=== PATIENT | female | born 1950 | race Caucasian/White ===

== ENCOUNTER 2024-03-24 09:05 | Inpatient (IN) | payer MEDICARE, MEDICAID ==
[2024-03-24] MEDS: Furosemide 40 MG/4 ML VIAL IVPUSH ONE (09:25)
[2024-03-24 09:45] LABS: BASOPHILS ABSOLUTE AUTO 0.02 10^3/uL (0.00-0.50); BASOPHILS PERCENT AUTO 0.2 % (0-1); HEMOGLOBIN 8.5 g/dL (12.0-16.0); IMMATURE GRAN ABSOLUTE AUTO 0.01 10^3/uL (0.00-0.49); IMMATURE GRAN PERCENT AUTO 0.1 % (0.0-4.9); LYMPHOCYTES ABSOLUTE AUTO 0.61 10^3/uL (0.60-5.00); LYMPHOCYTES PERCENT AUTO 4.9 % (24-44); MEAN CORPUSCULAR HEMOGLOBIN 28.9 pg (27.0-32.0); MEAN CORPUSCULAR HGB CONC 30.4 g/dL (32.0-36.0); MEAN CORPUSCULAR VOLUME 95.2 fL (83.0-97.0); MONOCYTES PERCENT AUTO 4.8 % (0-10); NEUTROPHILS ABSOLUTE AUTO 11.27 x10^3/uL (1.80-8.00); PLATELET COUNT,PLT 308 10^3/uL (150-400); RED BLOOD CELL COUNT 2.94 x10^6/uL (4.00-5.50); WHITE BLOOD CELL COUNT,WBC 12.5 10^3/uL (4.0-11.0)
[2024-03-24 10:05] LABS: ALBUMIN 3.3 g/dL (3.4-5.0); BILIRUBIN TOTAL 0.6 mg/dL (0.0-1.0); C-REACTIVE PROTEIN 1.98 mg/dL (<=0.50); CREATININE 1.6 mg/dL (0.6-1.0); EST CRCL DRUG DOSING (CG) 23.16 mL/min; MAGNESIUM 2.4 mg/dL (1.8-2.4); POTASSIUM,K 4.3 mEq/L (3.5-5.0); PROTEIN TOTAL,TP 7.6 g/dL (6.4-8.2)
[2024-03-24 11:09] LABS: APPEARANCE,URINE SLIGHTLY CLOUDY (CLEAR); BILIRUBIN,URINE NEGATIVE (NEGATIVE); COLOR,URINE YELLOW (YELLOW); GLUCOSE,URINE NEGATIVE (NEGATIVE); KETONES,URINE NEGATIVE (NEGATIVE); LEUKOCYTE ESTERASE,URINE SMALL (NEGATIVE); NITRITE,URINE POSITIVE (NEGATIVE); OCCULT BLOOD,URINE NEGATIVE (NEGATIVE); PH,URINE 5.5 (4.5-8.0); PROTEIN,URINE NEGATIVE (NEGATIVE); UROBILINOGEN,URINE 0.2 EU/dL (0.2-1.0)
[2024-03-24 11:20] LABS: RBC,URINE NOT SEEN /HPF (0-5)
[2024-03-24 11:21] LABS: BACTERIA,URINE MODERATE /HPF (NOT SEEN); SQUAMOUS EPITHELIAL CELLS,UR OCCASIONAL /HPF (NOT SEEN)
[2024-03-24] MEDS ORDERED: Ondansetron 4 MG/2 ML SDV IV PRN (12:26)
[2024-03-24] MEDS ORDERED: Acetaminophen 650 MG Supp RECTAL PRN (12:26)
[2024-03-24] MEDS ORDERED: Docusate Sodium 100 MG Cap PO PRN (12:26)
[2024-03-24] MEDS ORDERED: Ondansetron 4 MG Tab.DIS PO PRN (12:26)
[2024-03-24] MEDS ORDERED: Polyethylene Glycol 3350 Powder 17 GM Packet PO PRN (12:26)
[2024-03-24] MEDS ORDERED: Acetaminophen 325 MG Tab PO PRN (12:26)
[2024-03-24] MEDS: Piperacillin/Tazobactam 4.5 GM in Sodium Chloride 0.9% 100 ML IV ONE (12:29)
[2024-03-24] MEDS ORDERED: hydrALAZINE 25 MG Tab PO PRN (13:12)
[2024-03-24] MEDS ORDERED: Melatonin 3 MG Tab PO PRN (13:12)
[2024-03-24] MEDS ORDERED: traMADol 50 MG Tab PO PRN (13:12)
[2024-03-24] MEDS: Amoxicillin/Clavulanate K 500-125 MG Tab PO SCH (13:20)
[2024-03-24] MEDS: busPIRone 5 MG Tab PO SCH (14:05)
[2024-03-24] MEDS: Gabapentin 300 MG Cap PO SCH (14:05)
[2024-03-24] MEDS: Furosemide 40 MG/4 ML VIAL IVPUSH SCH (15:33)
[2024-03-24] MEDS: Albuterol/Ipratropium 3.0-0.5 MG/3 ML Neb Soln INH PRN (15:51)
[2024-03-24] MEDS: Nitroglycerin 2% Oint 1 GM UD Packet TOP ONE (18:10)
[2024-03-24 18:33] LABS: BASOPHILS ABSOLUTE AUTO 0.04 10^3/uL (0.00-0.50); BASOPHILS PERCENT AUTO 0.3 % (0-1); HEMATOCRIT 29.5 % (37.0-47.0); HEMOGLOBIN 8.9 g/dL (12.0-16.0); IMMATURE GRAN ABSOLUTE AUTO 0.03 10^3/uL (0.00-0.49); IMMATURE GRAN PERCENT AUTO 0.2 % (0.0-4.9); LYMPHOCYTES ABSOLUTE AUTO 0.77 10^3/uL (0.60-5.00); LYMPHOCYTES PERCENT AUTO 5.9 % (24-44); MEAN CORPUSCULAR HEMOGLOBIN 28.6 pg (27.0-32.0); MEAN CORPUSCULAR HGB CONC 30.2 g/dL (32.0-36.0); MEAN CORPUSCULAR VOLUME 94.9 fL (83.0-97.0); MONOCYTES ABSOLUTE AUTO 0.87 10^3/uL (0.00-1.50); MONOCYTES PERCENT AUTO 6.7 % (0-10); NEUTROPHILS ABSOLUTE AUTO 11.24 x10^3/uL (1.80-8.00); NEUTROPHILS PERCENT AUTO 86.9 % (41-71); PLATELET COUNT,PLT 317 10^3/uL (150-400); RED BLOOD CELL COUNT 3.11 x10^6/uL (4.00-5.50)
[2024-03-24 18:47] LABS: ALBUMIN 3.4 g/dL (3.4-5.0); BILIRUBIN TOTAL 0.5 mg/dL (0.0-1.0); CALCIUM 8.9 mg/dL (8.4-10.1); CREATININE 1.7 mg/dL (0.6-1.0); EST CRCL DRUG DOSING (CG) 21.8 mL/min; MAGNESIUM 2.5 mg/dL (1.8-2.4); POTASSIUM,K 4.3 mEq/L (3.5-5.0); PROTEIN TOTAL,TP 7.9 g/dL (6.4-8.2)
[2024-03-24 18:57] LABS: O2 DELIVERY DEVICE SIMPLE MASK; PCO2 ARTERIAL 50 mm/Hg0 (35-45)
[2024-03-24 18:58] LABS: BASE EXCESS ARTERIAL 5.9 (-2.0-3.0); BICARBONATE,ARTERIAL 30.7 mm/L (22.0-26.0); O2 SATURATION ARTERIAL 89 % (95-98); PO2 ARTERIAL 57 mm/Hg (80-100)
[2024-03-24] MEDS: Amitriptyline 25 MG Tab PO SCH (19:02)
[2024-03-24] MEDS: Apixaban 5 MG Tab PO SCH (19:03)
[2024-03-24] MEDS: atorvaSTATin 10 MG Tab PO SCH (19:03)
[2024-03-24] MEDS: Carvedilol 12.5 MG Tab PO SCH (19:03)
[2024-03-24] MEDS: Bumetanide 2.5 MG/10 ML MDV IVPUSH SCH (19:17)
[2024-03-24] MEDS: Insulin NPH/Insulin Regular,Human 70-30 100 Units/ML 10 ML Vial SUBCUT SCH (21:19)
[2024-03-25 07:22] LABS: BASOPHILS ABSOLUTE AUTO 0.04 10^3/uL (0.00-0.50); BASOPHILS PERCENT AUTO 0.6 % (0-1); HEMATOCRIT 25.7 % (37.0-47.0); HEMOGLOBIN 7.8 g/dL (12.0-16.0); IMMATURE GRAN ABSOLUTE AUTO 0.01 10^3/uL (0.00-0.49); IMMATURE GRAN PERCENT AUTO 0.1 % (0.0-4.9); LYMPHOCYTES ABSOLUTE AUTO 1.17 10^3/uL (0.60-5.00); LYMPHOCYTES PERCENT AUTO 16.9 % (24-44); MEAN CORPUSCULAR HEMOGLOBIN 28.8 pg (27.0-32.0); MEAN CORPUSCULAR HGB CONC 30.4 g/dL (32.0-36.0); MEAN CORPUSCULAR VOLUME 94.8 fL (83.0-97.0); MONOCYTES PERCENT AUTO 8.7 % (0-10); NEUTROPHILS ABSOLUTE AUTO 5.09 x10^3/uL (1.80-8.00); NEUTROPHILS PERCENT AUTO 73.7 % (41-71); PLATELET COUNT,PLT 273 10^3/uL (150-400); RED BLOOD CELL COUNT 2.71 x10^6/uL (4.00-5.50); WHITE BLOOD CELL COUNT,WBC 6.9 10^3/uL (4.0-11.0)
[2024-03-25 07:42] LABS: CALCIUM 8.7 mg/dL (8.4-10.1); CREATININE 1.7 mg/dL (0.6-1.0); EST CRCL DRUG DOSING (CG) 21.8 mL/min; MAGNESIUM 2.4 mg/dL (1.8-2.4); POTASSIUM,K 3.6 mEq/L (3.5-5.0)
[2024-03-25] MEDS: DULoxetine 30 MG Cap PO SCH (07:53)
[2024-03-25] MEDS: Aspirin 81 MG Tab.EC PO SCH (07:53)
[2024-03-25] MEDS: Metolazone 5 MG Tab PO SCH (07:53)
[2024-03-25] MEDS: amLODIPine 10 MG Tab PO SCH (07:54)
[2024-03-25] MEDS: Insulin NPH/Insulin Regular,Human 70-30 100 Units/ML 10 ML Vial SUBCUT SCH (10:20)
[2024-03-25] MEDS: Piperacillin/Tazobactam 4.5 GM in Sodium Chloride 0.9% 100 ML IV ONE (13:57)
[2024-03-25] MEDS: Albumin Human 25 GM in Premix Bag 1 BAG IV ONE (13:58)
[2024-03-25] MEDS: Piperacillin/Tazobactam 4.5 GM in Sodium Chloride 0.9% 100 ML IV SCH (18:26)
[2024-03-26 07:49] LABS: BASOPHILS ABSOLUTE AUTO 0.03 10^3/uL (0.00-0.50); BASOPHILS PERCENT AUTO 0.4 % (0-1); HEMATOCRIT 26.9 % (37.0-47.0); HEMOGLOBIN 8.3 g/dL (12.0-16.0); IMMATURE GRAN ABSOLUTE AUTO 0.01 10^3/uL (0.00-0.49); IMMATURE GRAN PERCENT AUTO 0.1 % (0.0-4.9); LYMPHOCYTES ABSOLUTE AUTO 1.06 10^3/uL (0.60-5.00); LYMPHOCYTES PERCENT AUTO 15.3 % (24-44); MEAN CORPUSCULAR HGB CONC 30.9 g/dL (32.0-36.0); MEAN CORPUSCULAR VOLUME 94.1 fL (83.0-97.0); MONOCYTES ABSOLUTE AUTO 0.65 10^3/uL (0.00-1.50); MONOCYTES PERCENT AUTO 9.4 % (0-10); NEUTROPHILS ABSOLUTE AUTO 5.18 x10^3/uL (1.80-8.00); NEUTROPHILS PERCENT AUTO 74.8 % (41-71); PLATELET COUNT,PLT 289 10^3/uL (150-400); RED BLOOD CELL COUNT 2.86 x10^6/uL (4.00-5.50); WHITE BLOOD CELL COUNT,WBC 6.9 10^3/uL (4.0-11.0)
[2024-03-26 07:54] LABS: CREATININE 1.5 mg/dL (0.6-1.0); EST CRCL DRUG DOSING (CG) 24.71 mL/min; MAGNESIUM 2.3 mg/dL (1.8-2.4); POTASSIUM,K 3.5 mEq/L (3.5-5.0)
[2024-03-26] MEDS: methylPREDNISolone Sodium Succinate 40 MG/1 ML SDV IVPUSH SCH (10:50)
[2024-03-26] MEDS: Albuterol/Ipratropium 3.0-0.5 MG/3 ML Neb Soln NEB SCH (12:39)
[2024-03-27 07:15] LABS: BASOPHILS ABSOLUTE AUTO 0.01 10^3/uL (0.00-0.50); BASOPHILS PERCENT AUTO 0.1 % (0-1); HEMATOCRIT 29.6 % (37.0-47.0); HEMOGLOBIN 9.2 g/dL (12.0-16.0); IMMATURE GRAN ABSOLUTE AUTO 0.01 10^3/uL (0.00-0.49); IMMATURE GRAN PERCENT AUTO 0.1 % (0.0-4.9); LYMPHOCYTES ABSOLUTE AUTO 0.36 10^3/uL (0.60-5.00); LYMPHOCYTES PERCENT AUTO 4.8 % (24-44); MEAN CORPUSCULAR HEMOGLOBIN 28.6 pg (27.0-32.0); MEAN CORPUSCULAR HGB CONC 31.1 g/dL (32.0-36.0); MEAN CORPUSCULAR VOLUME 91.9 fL (83.0-97.0); MONOCYTES ABSOLUTE AUTO 0.08 10^3/uL (0.00-1.50); MONOCYTES PERCENT AUTO 1.1 % (0-10); NEUTROPHILS ABSOLUTE AUTO 7.01 x10^3/uL (1.80-8.00); NEUTROPHILS PERCENT AUTO 93.9 % (41-71); PLATELET COUNT,PLT 298 10^3/uL (150-400); RED BLOOD CELL COUNT 3.22 x10^6/uL (4.00-5.50); WHITE BLOOD CELL COUNT,WBC 7.5 10^3/uL (4.0-11.0)
[2024-03-27 07:39] LABS: CALCIUM 9.2 mg/dL (8.4-10.1); CREATININE 1.5 mg/dL (0.6-1.0); EST CRCL DRUG DOSING (CG) 24.71 mL/min; MAGNESIUM 2.2 mg/dL (1.8-2.4); POTASSIUM,K 3.4 mEq/L (3.5-5.0)
[2024-03-27] MEDS: Bumetanide 1 MG Tab PO SCH (15:41)
[2024-03-27] MEDS ORDERED: Glucagon,Human Recombinant 1 MG Vial IM PRN (20:17)
[2024-03-27] MEDS ORDERED: 50% Dextrose in Water 50 ML Syringe IVPUSH PRN (20:17)
[2024-03-27] MEDS: Insulin Lispro 100 Units/ML 3 ML Vial SUBCUT ONE (20:27)
[2024-03-28 07:38] LABS: BASOPHILS ABSOLUTE AUTO 0.01 10^3/uL (0.00-0.50); BASOPHILS PERCENT AUTO 0.1 % (0-1); HEMATOCRIT 30.4 % (37.0-47.0); HEMOGLOBIN 9.5 g/dL (12.0-16.0); IMMATURE GRAN ABSOLUTE AUTO 0.01 10^3/uL (0.00-0.49); IMMATURE GRAN PERCENT AUTO 0.1 % (0.0-4.9); LYMPHOCYTES ABSOLUTE AUTO 0.38 10^3/uL (0.60-5.00); LYMPHOCYTES PERCENT AUTO 5.3 % (24-44); MEAN CORPUSCULAR HEMOGLOBIN 28.4 pg (27.0-32.0); MEAN CORPUSCULAR HGB CONC 31.3 g/dL (32.0-36.0); MONOCYTES ABSOLUTE AUTO 0.13 10^3/uL (0.00-1.50); MONOCYTES PERCENT AUTO 1.8 % (0-10); NEUTROPHILS ABSOLUTE AUTO 6.67 x10^3/uL (1.80-8.00); NEUTROPHILS PERCENT AUTO 92.7 % (41-71); PLATELET COUNT,PLT 345 10^3/uL (150-400); RED BLOOD CELL COUNT 3.34 x10^6/uL (4.00-5.50); WHITE BLOOD CELL COUNT,WBC 7.2 10^3/uL (4.0-11.0)
[2024-03-28 08:04] LABS: CALCIUM 9.4 mg/dL (8.4-10.1); CREATININE 1.5 mg/dL (0.6-1.0); EST CRCL DRUG DOSING (CG) 24.71 mL/min; MAGNESIUM 2.2 mg/dL (1.8-2.4); POTASSIUM,K 3.9 mEq/L (3.5-5.0)
== END 2024-03-28 12:50 | disposition home or self-care (01) | DRG 291 ==
LOC: CC.ED 09:05 → UNDOADMIN 11:23 → CC.MS 11:23
PROVIDERS: ADMIT Nurse Practitioner; ATTEND Nurse Practitioner
PROC: 4A033R1 Measurement of Arterial Saturation, Peripheral, Percutaneous Approach (ICD-10-PCS; principal; 2024-03-24)
PROC: 0T9B70Z Drainage of Bladder with Drainage Device, Via Natural or Artificial Opening (ICD-10-PCS; 2024-03-24)
DX: I13.0 Hypertensive heart and chronic kidney disease with heart failure and stage 1 through stage 4 chronic kidney disease, or unspecified chronic kidney disease (principal); J96.01 Acute respiratory failure with hypoxia; N39.0 Urinary tract infection, site not specified; Z68.42 Body mass index [BMI] 45.0-49.9, adult; I50.9 Heart failure, unspecified; E11.22 Type 2 diabetes mellitus with diabetic chronic kidney disease; E11.9 Type 2 diabetes mellitus without complications; E66.9 Obesity, unspecified; F32.A Depression, unspecified; N18.32 Chronic kidney disease, stage 3b; Z88.5 Allergy status to narcotic agent; Z79.84 Long term (current) use of oral hypoglycemic drugs; Z88.1 Allergy status to other antibiotic agents; Z88.2 Allergy status to sulfonamides; Z88.8 Allergy status to other drugs, medicaments and biological substances; Z79.4 Long term (current) use of insulin; Z79.899 Other long term (current) drug therapy; Z79.01 Long term (current) use of anticoagulants; Z79.82 Long term (current) use of aspirin; Z79.51 Long term (current) use of inhaled steroids; Z86.711 Personal history of pulmonary embolism; Z98.49 Cataract extraction status, unspecified eye; Z95.1 Presence of aortocoronary bypass graft; Z90.710 Acquired absence of both cervix and uterus
CPT/HCPCS: 36415; 71045; 80053; 81001; 83605; 83735; 83880; 84484; 85025; 86140; 87040 ×2; 87086; 87088; 87186; 93005; 96374; 99285; J1940; U0002; 36600; 51701; 71250; 80048; 82803; 82947; 93010; 94640; A9270-GY; J1815-GY; J2543; J2920; J3490; J7620-GY; P9047

== ENCOUNTER 2024-04-02 14:48 | Emergency (ER) | payer MEDICARE, MEDICAID ==
[2024-04-02 15:20] LABS: BASOPHILS ABSOLUTE AUTO 0.04 10^3/uL (0.00-0.50); BASOPHILS PERCENT AUTO 0.3 % (0-1); HEMATOCRIT 31.3 % (37.0-47.0); HEMOGLOBIN 9.9 g/dL (12.0-16.0); IMMATURE GRAN ABSOLUTE AUTO 0.03 10^3/uL (0.00-0.49); IMMATURE GRAN PERCENT AUTO 0.2 % (0.0-4.9); LYMPHOCYTES PERCENT AUTO 10.1 % (24-44); MEAN CORPUSCULAR HEMOGLOBIN 29.3 pg (27.0-32.0); MEAN CORPUSCULAR HGB CONC 31.6 g/dL (32.0-36.0); MEAN CORPUSCULAR VOLUME 92.6 fL (83.0-97.0); MONOCYTES ABSOLUTE AUTO 1.07 10^3/uL (0.00-1.50); MONOCYTES PERCENT AUTO 7.7 % (0-10); NEUTROPHILS ABSOLUTE AUTO 11.34 x10^3/uL (1.80-8.00); NEUTROPHILS PERCENT AUTO 81.7 % (41-71); PLATELET COUNT,PLT 282 10^3/uL (150-400); RED BLOOD CELL COUNT 3.38 x10^6/uL (4.00-5.50); WHITE BLOOD CELL COUNT,WBC 13.9 10^3/uL (4.0-11.0)
[2024-04-02 15:39] LABS: ALANINE AMINOTRANSFERASE,ALT 24 U/L (12-78); ALBUMIN 3.3 g/dL (3.4-5.0); ALKALINE PHOSPHATASE 120 U/L (46-116); ASPARTATE AMNIOTRANSFERASE,AST 16 U/L (15-37); BILIRUBIN TOTAL 0.6 mg/dL (0.0-1.0); BLOOD UREA NITROGEN,BUN 64 mg/dL (7-18); CALCIUM 9.4 mg/dL (8.4-10.1); CARBON DIOXIDE,CO2 39 mmol/L (21-32); CHLORIDE,CL 97 mEq/L (98-106); CREATININE 1.6 mg/dL (0.6-1.0); GLUCOSE RANDOM 157 mg/dL (75-99); POTASSIUM,K 3.9 mEq/L (3.5-5.0); PRO B-TYPE NATRIUR PEPT,BNPPRO 658 pg/mL (0-1000); PROTEIN TOTAL,TP 7.7 g/dL (6.4-8.2); SODIUM,NA 141 mEq/L (136-145)
[2024-04-02 15:40] LABS: ESTIMATED GFR 34 mL/min (>=60)
[2024-04-02] MEDS: Bumetanide 1 MG Tab PO ONE (16:00)
== END 2024-04-02 18:00 | disposition home or self-care (01) ==
LOC: CC.ED 14:48
DX: I13.0 Hypertensive heart and chronic kidney disease with heart failure and stage 1 through stage 4 chronic kidney disease, or unspecified chronic kidney disease (principal); I50.9 Heart failure, unspecified; N18.9 Chronic kidney disease, unspecified; E11.22 Type 2 diabetes mellitus with diabetic chronic kidney disease; E66.9 Obesity, unspecified; Z87.891 Personal history of nicotine dependence; Z95.1 Presence of aortocoronary bypass graft; Z79.899 Other long term (current) drug therapy; Z79.01 Long term (current) use of anticoagulants; Z79.4 Long term (current) use of insulin; Z88.2 Allergy status to sulfonamides; Z88.5 Allergy status to narcotic agent; Z88.1 Allergy status to other antibiotic agents
CPT/HCPCS: 36415; 71045; 80053; 83880; 85025; 99284; 99285; A9270; 71046

== ENCOUNTER 2024-05-01 15:43 | Emergency (ER) | payer MEDICARE ==
[2024-05-01 16:35] LABS: LACTIC ACID 1.3 mmol/L (0.4-2.0)
[2024-05-01 16:37] LABS: BASOPHILS ABSOLUTE AUTO 0.04 10^3/uL (0.00-0.50); BASOPHILS PERCENT AUTO 0.4 % (0-1); HEMATOCRIT 35.1 % (37.0-47.0); HEMOGLOBIN 10.8 g/dL (12.0-16.0); IMMATURE GRAN ABSOLUTE AUTO 0.02 10^3/uL (0.00-0.49); IMMATURE GRAN PERCENT AUTO 0.2 % (0.0-4.9); LYMPHOCYTES ABSOLUTE AUTO 1.95 10^3/uL (0.60-5.00); LYMPHOCYTES PERCENT AUTO 19.8 % (24-44); MEAN CORPUSCULAR HEMOGLOBIN 27.3 pg (27.0-32.0); MEAN CORPUSCULAR HGB CONC 30.8 g/dL (32.0-36.0); MEAN CORPUSCULAR VOLUME 88.6 fL (83.0-97.0); MONOCYTES ABSOLUTE AUTO 0.78 10^3/uL (0.00-1.50); MONOCYTES PERCENT AUTO 7.9 % (0-10); NEUTROPHILS ABSOLUTE AUTO 7.06 x10^3/uL (1.80-8.00); NEUTROPHILS PERCENT AUTO 71.7 % (41-71); PLATELET COUNT,PLT 340 10^3/uL (150-400); RED BLOOD CELL COUNT 3.96 x10^6/uL (4.00-5.50); WHITE BLOOD CELL COUNT,WBC 9.9 10^3/uL (4.0-11.0)
[2024-05-01 16:53] LABS: ALBUMIN 2.8 g/dL (3.4-5.0); BILIRUBIN TOTAL 0.4 mg/dL (0.0-1.0); C-REACTIVE PROTEIN 3.42 mg/dL (<=0.50); CALCIUM 9.7 mg/dL (8.4-10.1); EST CRCL DRUG DOSING (CG) 18.53 mL/min; MAGNESIUM 2.8 mg/dL (1.8-2.4); POTASSIUM,K 3.5 mEq/L (3.5-5.0); PROTEIN TOTAL,TP 7.9 g/dL (6.4-8.2)
[2024-05-01 17:00] LABS: INR 1.15 (0.92-1.18)
[2024-05-01] MEDS: Sodium Chloride 0.9% 1,000 ML IV ONE (17:07)
[2024-05-01] MEDS: VANCOmycin 1.75 GM/350 ML 1.75 GM in Premix Bag 1 BAG IV ONE (17:12)
[2024-05-01] MEDS: Morphine 2 MG/ML SYRINGE IVPUSH ONE (17:13)
== END 2024-05-01 19:25 ==
LOC: CC.ED 15:43
DX: E11.628 Type 2 diabetes mellitus with other skin complications (principal); L08.9 Local infection of the skin and subcutaneous tissue, unspecified; N17.9 Acute kidney failure, unspecified; E66.9 Obesity, unspecified; Z79.01 Long term (current) use of anticoagulants; Z79.899 Other long term (current) drug therapy; Z79.82 Long term (current) use of aspirin; Z79.4 Long term (current) use of insulin; Z88.5 Allergy status to narcotic agent; Z88.2 Allergy status to sulfonamides; Z88.1 Allergy status to other antibiotic agents; Z68.41 Body mass index [BMI] 40.0-44.9, adult
CPT/HCPCS: 36415; 73630; 80053; 83605; 83735; 85025; 85610; 86140; 87040; 96365; 96366; 96375; 99284; 99285; J2270; J3370; J7030

== ENCOUNTER 2024-05-19 12:51 | Inpatient (IN) | payer MEDICAID, MEDICARE ==
[2024-05-19] MEDS ORDERED: Sodium Chloride 0.9% 10 ML Syringe FLUSH PRN (13:40)
[2024-05-19 13:54] LABS: BASOPHILS ABSOLUTE AUTO 0.06 10^3/uL (0.00-0.50); BASOPHILS PERCENT AUTO 0.3 % (0-1); HEMATOCRIT 30.9 % (37.0-47.0); HEMOGLOBIN 9.6 g/dL (12.0-16.0); IMMATURE GRAN ABSOLUTE AUTO 0.06 10^3/uL (0.00-0.49); IMMATURE GRAN PERCENT AUTO 0.3 % (0.0-4.9); LYMPHOCYTES ABSOLUTE AUTO 0.82 10^3/uL (0.60-5.00); LYMPHOCYTES PERCENT AUTO 4.3 % (24-44); MEAN CORPUSCULAR HEMOGLOBIN 28.2 pg (27.0-32.0); MEAN CORPUSCULAR HGB CONC 31.1 g/dL (32.0-36.0); MEAN CORPUSCULAR VOLUME 90.6 fL (83.0-97.0); MONOCYTES ABSOLUTE AUTO 0.72 10^3/uL (0.00-1.50); MONOCYTES PERCENT AUTO 3.8 % (0-10); NEUTROPHILS ABSOLUTE AUTO 17.26 x10^3/uL (1.80-8.00); NEUTROPHILS PERCENT AUTO 91.3 % (41-71); PLATELET COUNT,PLT 409 10^3/uL (150-400); RED BLOOD CELL COUNT 3.41 x10^6/uL (4.00-5.50); WHITE BLOOD CELL COUNT,WBC 18.9 10^3/uL (4.0-11.0)
[2024-05-19 14:09] LABS: LACTIC ACID 1.6 mmol/L (0.4-2.0)
[2024-05-19 14:10] LABS: ALANINE AMINOTRANSFERASE,ALT 21 U/L (12-78); ALBUMIN 2.6 g/dL (3.4-5.0); ALKALINE PHOSPHATASE 94 U/L (46-116); ASPARTATE AMNIOTRANSFERASE,AST 21 U/L (15-37); BILIRUBIN TOTAL 0.8 mg/dL (0.0-1.0); BLOOD UREA NITROGEN,BUN 65 mg/dL (7-18); C-REACTIVE PROTEIN 3.93 mg/dL (<=0.50); CALCIUM 9.1 mg/dL (8.4-10.1); CARBON DIOXIDE,CO2 26 mmol/L (21-32); CHLORIDE,CL 104 mEq/L (98-106); CREATININE 1.9 mg/dL (0.6-1.0); GLUCOSE RANDOM 80 mg/dL (75-99); MAGNESIUM 1.1 mg/dL (1.8-2.4); PROTEIN TOTAL,TP 7.4 g/dL (6.4-8.2); SODIUM,NA 144 mEq/L (136-145)
[2024-05-19 14:17] LABS: ESTIMATED GFR 28 mL/min (>=60)
[2024-05-19 14:35] LABS: APPEARANCE,URINE SLIGHTLY CLOUDY (CLEAR); BILIRUBIN,URINE NEGATIVE (NEGATIVE); COLOR,URINE YELLOW (YELLOW); GLUCOSE,URINE NEGATIVE (NEGATIVE); KETONES,URINE NEGATIVE (NEGATIVE); LEUKOCYTE ESTERASE,URINE TRACE (NEGATIVE); NITRITE,URINE NEGATIVE (NEGATIVE); OCCULT BLOOD,URINE NEGATIVE (NEGATIVE); PH,URINE 5.5 (4.5-8.0); PROTEIN,URINE TRACE mg/dL (NEGATIVE); UROBILINOGEN,URINE 0.2 EU/dL (0.2-1.0)
[2024-05-19 14:40] LABS: BACTERIA,URINE RARE /HPF (NOT SEEN); EPITHELIAL CELLS,URINE NOT SEEN /HPF (NOT SEEN); MUCUS,URINE OCCASIONAL /HPF (NOT SEEN); RBC,URINE NOT SEEN /HPF (0-5); WBC,URINE 0-5 /HPF (0-5)
[2024-05-19] MEDS ORDERED: Polyethylene Glycol 3350 Powder 17 GM Packet PO PRN (18:24)
[2024-05-19] MEDS ORDERED: Acetaminophen 325 MG Tab PO PRN (18:28)
[2024-05-19] MEDS ORDERED: Ondansetron 4 MG Tab.DIS PO PRN (18:28)
[2024-05-19] MEDS ORDERED: Ondansetron 4 MG/2 ML SDV IV PRN (18:28)
[2024-05-19] MEDS: Piperacillin/Tazobactam 4.5 GM in Sodium Chloride 0.9% 100 ML IV ONE (19:30)
[2024-05-19] MEDS: Nystatin Crm 30 GM Tube TOP PRN (19:33)
[2024-05-19] MEDS: Amitriptyline 25 MG Tab PO SCH (19:34)
[2024-05-19] MEDS: Sertraline 25 MG Tab PO SCH (19:35)
[2024-05-19] MEDS: Apixaban 5 MG Tab PO SCH (19:35)
[2024-05-19] MEDS: atorvaSTATin 10 MG Tab PO SCH (19:36)
[2024-05-19] MEDS: busPIRone 5 MG Tab PO SCH (19:36)
[2024-05-19] MEDS: Acetaminophen 500 MG Tab PO SCH (19:37)
[2024-05-19] MEDS: Carvedilol 12.5 MG Tab PO SCH (19:39)
[2024-05-19] MEDS: Sodium Chloride 0.9% 1,000 ML IV SCH (22:26)
[2024-05-19] MEDS: Piperacillin/Tazobactam 4.5 GM in Sodium Chloride 0.9% 100 ML IV SCH (23:09)
[2024-05-19] MEDS: Insulin NPH/Insulin Regular,Human 70-30 100 Units/ML 10 ML Vial SUBCUT SCH (23:34)
[2024-05-20] MEDS: INSULN ASP SQ SCH (04:17)
[2024-05-20] MEDS: INSULIN ASPART PROT SQ SCH (04:17)
[2024-05-20 07:26] LABS: BASOPHILS ABSOLUTE AUTO 0.06 10^3/uL (0.00-0.50); BASOPHILS PERCENT AUTO 0.3 % (0-1); HEMOGLOBIN 9.3 g/dL (12.0-16.0); IMMATURE GRAN ABSOLUTE AUTO 0.09 10^3/uL (0.00-0.49); IMMATURE GRAN PERCENT AUTO 0.5 % (0.0-4.9); LYMPHOCYTES ABSOLUTE AUTO 0.99 10^3/uL (0.60-5.00); LYMPHOCYTES PERCENT AUTO 5.6 % (24-44); MEAN CORPUSCULAR HEMOGLOBIN 28.1 pg (27.0-32.0); MEAN CORPUSCULAR VOLUME 90.6 fL (83.0-97.0); MONOCYTES PERCENT AUTO 5.1 % (0-10); NEUTROPHILS PERCENT AUTO 88.5 % (41-71); PLATELET COUNT,PLT 389 10^3/uL (150-400); RED BLOOD CELL COUNT 3.31 x10^6/uL (4.00-5.50); WHITE BLOOD CELL COUNT,WBC 17.6 10^3/uL (4.0-11.0)
[2024-05-20] MEDS: Sennosides 8.6 MG Tab PO SCH (07:46)
[2024-05-20] MEDS: Gabapentin 300 MG Cap PO SCH (07:47)
[2024-05-20] MEDS: amLODIPine 10 MG Tab PO SCH (07:47)
[2024-05-20] MEDS: Bumetanide 1 MG Tab PO SCH (07:50)
[2024-05-20] MEDS: Aspirin 81 MG Tab.EC PO SCH (07:50)
[2024-05-20 07:51] LABS: ALBUMIN 2.4 g/dL (3.4-5.0); BILIRUBIN TOTAL 0.7 mg/dL (0.0-1.0); C-REACTIVE PROTEIN 12.22 mg/dL (<=0.50); CALCIUM 9.6 mg/dL (8.4-10.1); CREATININE 1.4 mg/dL (0.6-1.0); EST CRCL DRUG DOSING (CG) 26.47 mL/min; PROTEIN TOTAL,TP 7.2 g/dL (6.4-8.2)
[2024-05-20] MEDS: DULoxetine 30 MG Cap PO SCH (07:51)
[2024-05-20] MEDS ORDERED: INSULIN ASPART PROT SQ SCH (08:00)
[2024-05-20] MEDS ORDERED: INSULN ASP SQ SCH (08:00)
[2024-05-20] MEDS: Insulin NPH/Insulin Regular,Human 70-30 100 Units/ML 10 ML Vial SUBCUT SCH (09:40)
[2024-05-20] MEDS ORDERED: Gabapentin 300 MG Cap PO SCH (10:00)
[2024-05-21] MEDS: Insulin NPH/Insulin Regular,Human 70-30 100 Units/ML 10 ML Vial SUBCUT SCH (08:31)
[2024-05-21] MEDS: Albuterol/Ipratropium 3.0-0.5 MG/3 ML Neb Soln INH PRN (08:40)
[2024-05-21] MEDS: Menthol/Zinc Oxide Ointment 113 GM Tube TOP PRN (08:40)
[2024-05-21 08:45] LABS: BASOPHILS ABSOLUTE AUTO 0.05 10^3/uL (0.00-0.50); BASOPHILS PERCENT AUTO 0.3 % (0-1); HEMATOCRIT 30.1 % (37.0-47.0); HEMOGLOBIN 9.2 g/dL (12.0-16.0); IMMATURE GRAN ABSOLUTE AUTO 0.05 10^3/uL (0.00-0.49); IMMATURE GRAN PERCENT AUTO 0.3 % (0.0-4.9); LYMPHOCYTES ABSOLUTE AUTO 1.05 10^3/uL (0.60-5.00); LYMPHOCYTES PERCENT AUTO 7.1 % (24-44); MEAN CORPUSCULAR HEMOGLOBIN 27.9 pg (27.0-32.0); MEAN CORPUSCULAR HGB CONC 30.6 g/dL (32.0-36.0); MEAN CORPUSCULAR VOLUME 91.2 fL (83.0-97.0); MONOCYTES ABSOLUTE AUTO 0.78 10^3/uL (0.00-1.50); MONOCYTES PERCENT AUTO 5.3 % (0-10); NEUTROPHILS ABSOLUTE AUTO 12.81 x10^3/uL (1.80-8.00); PLATELET COUNT,PLT 389 10^3/uL (150-400); WHITE BLOOD CELL COUNT,WBC 14.7 10^3/uL (4.0-11.0)
[2024-05-21 08:59] LABS: ALBUMIN 2.3 g/dL (3.4-5.0); BILIRUBIN TOTAL 0.6 mg/dL (0.0-1.0); C-REACTIVE PROTEIN 12.85 mg/dL (<=0.50); CALCIUM 9.5 mg/dL (8.4-10.1); CREATININE 1.2 mg/dL (0.6-1.0); EST CRCL DRUG DOSING (CG) 30.89 mL/min; POTASSIUM,K 3.8 mEq/L (3.5-5.0); PROTEIN TOTAL,TP 7.2 g/dL (6.4-8.2)
[2024-05-21] MEDS: Lactobacillus Rhamnosus GG (Probiotic) Cap PO SCH (09:51)
[2024-05-21] MEDS: Loperamide 2 MG Cap PO PRN (12:50)
[2024-05-22] MEDS: Sodium Chloride 0.9% 100 ML ONE (06:46)
[2024-05-22] MEDS: Piperacillin/Tazobactam 4.5 GM Vial ONE (06:46)
[2024-05-22 07:18] LABS: BASOPHILS ABSOLUTE AUTO 0.05 10^3/uL (0.00-0.50); BASOPHILS PERCENT AUTO 0.4 % (0-1); HEMATOCRIT 28.7 % (37.0-47.0); IMMATURE GRAN ABSOLUTE AUTO 0.04 10^3/uL (0.00-0.49); IMMATURE GRAN PERCENT AUTO 0.3 % (0.0-4.9); LYMPHOCYTES ABSOLUTE AUTO 1.58 10^3/uL (0.60-5.00); MEAN CORPUSCULAR HEMOGLOBIN 28.3 pg (27.0-32.0); MEAN CORPUSCULAR HGB CONC 31.4 g/dL (32.0-36.0); MEAN CORPUSCULAR VOLUME 90.3 fL (83.0-97.0); MONOCYTES ABSOLUTE AUTO 0.66 10^3/uL (0.00-1.50); MONOCYTES PERCENT AUTO 5.4 % (0-10); NEUTROPHILS ABSOLUTE AUTO 9.82 x10^3/uL (1.80-8.00); NEUTROPHILS PERCENT AUTO 80.9 % (41-71); PLATELET COUNT,PLT 377 10^3/uL (150-400); RED BLOOD CELL COUNT 3.18 x10^6/uL (4.00-5.50); WHITE BLOOD CELL COUNT,WBC 12.2 10^3/uL (4.0-11.0)
[2024-05-22 07:35] LABS: ALBUMIN 2.1 g/dL (3.4-5.0); BILIRUBIN TOTAL 0.6 mg/dL (0.0-1.0); C-REACTIVE PROTEIN 8.49 mg/dL (<=0.50); CALCIUM 9.5 mg/dL (8.4-10.1); CREATININE 0.8 mg/dL (0.6-1.0); EST CRCL DRUG DOSING (CG) 46.33 mL/min; POTASSIUM,K 3.3 mEq/L (3.5-5.0)
[2024-05-22] MEDS: Potassium Chloride 20 MEQ Tab.ER PO ONE (10:14)
[2024-05-23] MEDS: Piperacillin/Tazobactam 4.5 GM Vial ONE (06:05)
[2024-05-23] MEDS: Sodium Chloride 0.9% 100 ML ONE (06:05)
[2024-05-23 07:43] LABS: BASOPHILS ABSOLUTE AUTO 0.06 10^3/uL (0.00-0.50); BASOPHILS PERCENT AUTO 0.7 % (0-1); HEMATOCRIT 31.3 % (37.0-47.0); HEMOGLOBIN 9.6 g/dL (12.0-16.0); IMMATURE GRAN ABSOLUTE AUTO 0.01 10^3/uL (0.00-0.49); IMMATURE GRAN PERCENT AUTO 0.1 % (0.0-4.9); LYMPHOCYTES ABSOLUTE AUTO 1.69 10^3/uL (0.60-5.00); LYMPHOCYTES PERCENT AUTO 21.1 % (24-44); MEAN CORPUSCULAR HEMOGLOBIN 27.6 pg (27.0-32.0); MEAN CORPUSCULAR HGB CONC 30.7 g/dL (32.0-36.0); MEAN CORPUSCULAR VOLUME 89.9 fL (83.0-97.0); MONOCYTES ABSOLUTE AUTO 0.64 10^3/uL (0.00-1.50); NEUTROPHILS ABSOLUTE AUTO 5.61 x10^3/uL (1.80-8.00); NEUTROPHILS PERCENT AUTO 70.1 % (41-71); PLATELET COUNT,PLT 367 10^3/uL (150-400); RED BLOOD CELL COUNT 3.48 x10^6/uL (4.00-5.50)
[2024-05-23 08:03] LABS: C-REACTIVE PROTEIN 5.29 mg/dL (<=0.50); CALCIUM 9.5 mg/dL (8.4-10.1); CREATININE 0.8 mg/dL (0.6-1.0); EST CRCL DRUG DOSING (CG) 46.33 mL/min; POTASSIUM,K 3.3 mEq/L (3.5-5.0)
== END 2024-05-23 14:40 | disposition home or self-care (01) | DRG 178 ==
LOC: CC.ED 12:51 → UNDOADMIN 15:00 → CC.MS 15:00
PROVIDERS: ADMIT Nurse Practitioner Family; ATTEND Nurse Practitioner Family
DX: J69.0 Pneumonitis due to inhalation of food and vomit (principal); F03.93 Unspecified dementia, unspecified severity, with mood disturbance; I48.91 Unspecified atrial fibrillation; J18.9 Pneumonia, unspecified organism; I11.0 Hypertensive heart disease with heart failure; D72.829 Elevated white blood cell count, unspecified; I50.9 Heart failure, unspecified; E11.9 Type 2 diabetes mellitus without complications; Z95.5 Presence of coronary angioplasty implant and graft; E66.9 Obesity, unspecified; E11.649 Type 2 diabetes mellitus with hypoglycemia without coma; Z79.2 Long term (current) use of antibiotics; Z79.891 Long term (current) use of opiate analgesic; R09.02 Hypoxemia; E87.6 Hypokalemia; Z89.422 Acquired absence of other left toe(s); Z79.4 Long term (current) use of insulin; Z88.1 Allergy status to other antibiotic agents; Z88.5 Allergy status to narcotic agent; Z88.2 Allergy status to sulfonamides; Z95.1 Presence of aortocoronary bypass graft; Z79.01 Long term (current) use of anticoagulants; Z79.82 Long term (current) use of aspirin; Z98.49 Cataract extraction status, unspecified eye; Z79.899 Other long term (current) drug therapy; Z86.711 Personal history of pulmonary embolism; Z90.710 Acquired absence of both cervix and uterus; Z68.39 Body mass index [BMI] 39.0-39.9, adult; Z86.31 Personal history of diabetic foot ulcer
CPT/HCPCS: 36415; 51702; 71045; 80048; 80053; 81001; 82947; 83605; 83735; 83880; 84484; 85025; 85379; 86140; 87040; 87086; 93005; 93010; 99285; A9270-GY; J1815-GY; J2543; J3490; J7030; J7620-GY

== ENCOUNTER 2024-12-11 07:20 | Emergency (ER) | payer MEDICARE, MEDICAID ==
[~2024-12-11 07:20] MED LIST: Sodium Chloride 0.9% 10 ML Syringe FLUSH PRN
[2024-12-11] MEDS: Albuterol/Ipratropium 3.0-0.5 MG/3 ML Neb Soln NEB ONE (07:30)
[2024-12-11 07:35] LABS: BASOPHILS ABSOLUTE AUTO 0.01 10^3/uL (0.00-0.50); BASOPHILS PERCENT AUTO 0.1 % (0-1); HEMATOCRIT 27.4 % (37.0-47.0); HEMOGLOBIN 8.4 g/dL (12.0-16.0); IMMATURE GRAN ABSOLUTE AUTO 0.04 10^3/uL (0.00-0.49); IMMATURE GRAN PERCENT AUTO 0.3 % (0.0-4.9); LYMPHOCYTES PERCENT AUTO 2.8 % (24-44); MEAN CORPUSCULAR HEMOGLOBIN 26.9 pg (27.0-32.0); MEAN CORPUSCULAR HGB CONC 30.7 g/dL (32.0-36.0); MEAN CORPUSCULAR VOLUME 87.8 fL (83.0-97.0); MONOCYTES ABSOLUTE AUTO 0.26 10^3/uL (0.00-1.50); MONOCYTES PERCENT AUTO 1.8 % (0-10); NEUTROPHILS ABSOLUTE AUTO 13.71 x10^3/uL (1.80-8.00); PLATELET COUNT,PLT 404 10^3/uL (150-400); RED BLOOD CELL COUNT 3.12 x10^6/uL (4.00-5.50); WHITE BLOOD CELL COUNT,WBC 14.4 10^3/uL (4.0-11.0)
[2024-12-11 07:49] LABS: ALANINE AMINOTRANSFERASE,ALT 22 U/L (12-78); ALBUMIN 2.1 g/dL (3.4-5.0); ALKALINE PHOSPHATASE 124 U/L (46-116); ASPARTATE AMNIOTRANSFERASE,AST 14 U/L (15-37); BILIRUBIN TOTAL 0.4 mg/dL (0.0-1.0); BLOOD UREA NITROGEN,BUN 43 mg/dL (7-18); C-REACTIVE PROTEIN 9.64 mg/dL (<=0.50); CALCIUM 8.8 mg/dL (8.4-10.1); CARBON DIOXIDE,CO2 27 mmol/L (21-32); CHLORIDE,CL 106 mEq/L (98-106); CREATININE 1.5 mg/dL (0.6-1.0); GLUCOSE RANDOM 113 mg/dL (75-99); LACTIC ACID 0.9 mmol/L (0.4-2.0); MAGNESIUM 1.4 mg/dL (1.8-2.4); PROTEIN TOTAL,TP 7.1 g/dL (6.4-8.2); SODIUM,NA 142 mEq/L (136-145)
[2024-12-11 07:51] LABS: ESTIMATED GFR 37 mL/min (>=60)
[2024-12-11 07:54] LABS: O2 DELIVERY DEVICE NON REBR MASK
[2024-12-11 07:55] LABS: BASE EXCESS ARTERIAL -1.3 (-2.0-3.0); BICARBONATE,ARTERIAL 24.6 mm/L (22.0-26.0); O2 SATURATION ARTERIAL 82 % (95-98); PCO2 ARTERIAL 45 mm/Hg0 (35-45); PH,ARTERIAL 7.35 (7.35-7.45); PO2 ARTERIAL 49 mm/Hg (80-100)
[2024-12-11] MEDS: Acetaminophen 650 MG Supp RECTAL ONE (08:15)
[2024-12-11] MEDS: Magnesium Sulfate/Water Premix 2 GM in Premix Bag 1 BAG IV ONE (08:35)
[2024-12-11] MEDS: Morphine 2 MG/ML SYRINGE IVPUSH PRN (08:35)
[2024-12-11] MEDS: Albuterol/Ipratropium 3.0-0.5 MG/3 ML Neb Soln ONE (08:40)
[2024-12-11] MEDS: Potassium Chloride Riders 20 MEQ in Premix Bag 1 BAG IV SCH (08:44)
[2024-12-11] MEDS: Piperacillin/Tazobactam 4.5 GM in Sodium Chloride 0.9% 100 ML IV ONE (08:49)
[2024-12-11 09:12] LABS: CORONAVIRUS COVID-19 NAA NEGATIVE (NEGATIVE); INFLUENZA A NAA NEGATIVE (NEGATIVE); INFLUENZA B NAA NEGATIVE (NEGATIVE); RESPIRATORY SYNCYTIAL VIR NAA NEGATIVE (NEGATIVE)
[2024-12-11] MEDS: Furosemide 40 MG/4 ML VIAL IVPUSH ONE (09:12)
[2024-12-11 09:18] LABS: BILIRUBIN,URINE NEGATIVE (NEGATIVE); COLOR,URINE YELLOW (YELLOW); GLUCOSE,URINE NEGATIVE (NEGATIVE); KETONES,URINE NEGATIVE (NEGATIVE); LEUKOCYTE ESTERASE,URINE LARGE (NEGATIVE); NITRITE,URINE POSITIVE (NEGATIVE); OCCULT BLOOD,URINE MODERATE (NEGATIVE); PROTEIN,URINE >=300 mg/dL (NEGATIVE); UROBILINOGEN,URINE 0.2 EU/dL (0.2-1.0)
[2024-12-11] MEDS: Heparin Sodium 5,000 Units/ML Vial IVPUSH ONE (09:21)
[2024-12-11 09:25] LABS: APPEARANCE,URINE TURBID (CLEAR); WBC,URINE >100 /HPF (0-5)
[2024-12-11 09:26] LABS: BACTERIA,URINE MANY /HPF (NOT SEEN)
[2024-12-11] MEDS: Heparin Sodium/0.45% NaCl 500 ML IV SCH (09:32)
[2024-12-11] MEDS: Sodium Chloride 0.9% 1,000 ML IV SCH (09:33)
[2024-12-11 09:45] LABS: INR 1.32 (0.92-1.18); PROTHROMBIN TIME 13.6 SEC (9.3-11.3); PTT,PARTIAL THROMBOPLSTIN TIME 31.2 SEC (20.0-30.0)
[2024-12-11] MEDS: VANCOmycin 2 GM/400 ML 2 GM in Premix Bag 1 BAG IV ONE (10:52)
== END 2024-12-11 11:32 ==
LOC: CC.ED 07:20
DX: J96.01 Acute respiratory failure with hypoxia (principal); N30.01 Acute cystitis with hematuria; I21.4 Non-ST elevation (NSTEMI) myocardial infarction; J18.9 Pneumonia, unspecified organism; I11.0 Hypertensive heart disease with heart failure; I50.9 Heart failure, unspecified; E11.9 Type 2 diabetes mellitus without complications; Z88.5 Allergy status to narcotic agent; Z88.1 Allergy status to other antibiotic agents; Z88.2 Allergy status to sulfonamides; Z88.6 Allergy status to analgesic agent; Z88.4 Allergy status to anesthetic agent; Z79.4 Long term (current) use of insulin; Z79.01 Long term (current) use of anticoagulants; Z79.899 Other long term (current) drug therapy; Z95.5 Presence of coronary angioplasty implant and graft; Z90.710 Acquired absence of both cervix and uterus; Z95.1 Presence of aortocoronary bypass graft
CPT/HCPCS: 0241U; 36415; 36600; 51702; 71045; 80053; 81001; 82803; 83605; 83735; 83880; 84484; 85025; 85610; 85730; 86140; 87040; 87070; 87081; 87086; 87088; 87186; 87428-QW; 93005; 93010; 94640; 96365; 96366; 96367; 96368; 96375; 99284; 99285-25; A9270-GY; J1644; J1940; J2270; J2543; J3372; J3475; J3480; J3490; J7030; J7620-GY